=== PATIENT | male | born 1965 | race Caucasian/White ===

== ENCOUNTER → 2017-08-26 | Outpatient (CLI) | payer OTHER ==
[2017-08-26 18:53] LABS: BASOPHILS # (AUTO) 0.2 X10^3/uL (0.0-0.1); BASOPHILS % (AUTO) 2.5 % (0.2-1.0); EOSINOPHILS # (AUTO) 0.1 x10^3/uL (0.0-0.2); EOSINOPHILS % (AUTO) 1.1 % (0.9-2.9); HEMATOCRIT 44.4 % (42.0-54.0); HEMOGLOBIN 15.5 g/dL (13.5-18.0); LYMPHOCYTES % (AUTO) 32.2 % (21.0-51.0); MEAN CORPUSCULAR HEMOGLOBIN 32.4 pg (27.0-34.0); MEAN CORPUSCULAR HGB CONC 34.9 g/dL (33.0-35.0); MEAN CORPUSCULAR VOLUME 92.8 fL (80.0-100.0); MEAN PLATELET VOLUME 7.9 fL (7.4-11.0); MONOCYTES # (AUTO) 0.6 x10^3/uL (0.3-0.8); MONOCYTES % (AUTO) 9.5 % (0.0-13.0); NEUTROPHILS # (AUTO) 3.5 x10^3/uL (2.2-4.8); NEUTROPHILS % (AUTO) 54.7 % (42.0-75.0); PLATELET COUNT 245 X10^3/uL (150.0-450.0); RED BLOOD COUNT 4.79 X10^6/uL (4.7-6.0); RED CELL DISTRIBUTION WIDTH 13.5 % (11.6-16.5); WHITE BLOOD COUNT 6.3 X10^3/uL (3.6-10.0)
[2017-08-26 19:19] LABS: ALANINE AMINOTRANSFERASE 103 Units/L (12-78); ALBUMIN 4.4 g/dL (3.4-5.0); ALKALINE PHOSPHATASE 70 Units/L (46-116); ASPARTATE AMINO TRANSFERASE 70 Units/L (15-37); BLOOD UREA NITROGEN 14 mg/dL (7-18); C-REACTIVE PROTEIN < 0.50 mg/L (0-3.0); CALCIUM 8.5 mg/dL (8.5-10.1); CARBON DIOXIDE 26.5 mmol/L (21-32); CHLORIDE 99 mmol/L (98-107); COR NA(FOR HYPERGLY) 137 mmol/L (136-145); SODIUM 136 mmol/L (136-145); TOTAL PROTEIN 7.9 g/dL (6.4-8.2); eGFR BLACK RACES > 60 (>60); eGFR NON BLACK RACES > 60 (>60)
[2017-08-26 19:32] LABS: ERYTHROCYTE SEDIMENTATION RATE 1 MM/HOUR (0-15)
[2017-08-26 19:36] LABS: BILIRUBIN,URINE NEGATIVE (NEGATIVE); BLOOD/HEMOGLOBIN,URINE NEGATIVE (NEGATIVE); GLUCOSE, URINE NEGATIVE (NEGATIVE); KETONES,URINE NEGATIVE (NEGATIVE); LEUKOCYTE ESTERASE ,URINE NEGATIVE (NEGATIVE); NITRITES,URINE NEGATIVE (NEGATIVE); PROTEIN,URINE NEGATIVE (NEGATIVE); UROBILINOGEN,URINE NORMAL (NORMAL)
[2017-08-26 20:21] LABS: APPEARANCE,URINE CLEAR (CLEAR); BACTERIA,URINE NEGATIVE /HPF (NEGATIVE); COLOR,URINE PALE YELLOW (YELLOW); RBC,URINE NONE SEEN /HPF (NONE SEEN); SQUAMOUS EPITHELIAL CELL,UR RARE /HPF (NEGATIVE)
--- NOTE | 2017-08-27 16:15 | RAD ---
HISTORY: Preop finger surgery Study: Chest PA and lateral Comparison: None Findings: The heart is within normal limits in size. The carito are normal. The lungs are mildly hyperinflated bu t free of acute alveolar infiltrates. No pleural effusions are identified. The bony thorax is unremar kable. IMPRESSION: Lungs hyperinflated but clear Reported By:
== END ==
LOC: LAB 18:07
PROVIDERS: ATTEND Orthopaedic Surgery
DX: Z01.818 Encounter for other preprocedural examination (principal); Z01.810 Encounter for preprocedural cardiovascular examination; Z01.811 Encounter for preprocedural respiratory examination; Z79.899 Other long term (current) drug therapy; Z11.8 Encounter for screening for other infectious and parasitic diseases; S62.621B Displaced fracture of middle phalanx of left index finger, initial encounter for open fracture; X58.XXXA Exposure to other specified factors, initial encounter
CPT/HCPCS: 36415; 71046; 80053; 81001; 85025; 85652; 86140; 87640; 87641; 93005; 93010

== ENCOUNTER 2017-08-29 09:14 | Day surgery (SDC) | payer OTHER ==
[2017-08-29] MEDS ORDERED: EPHEDRINE SULFATE INJ ONE (09:22)
[2017-08-29] MEDS ORDERED: ZOFRAN INJ 4 MG VIAL ONE (09:22)
[2017-08-29] MEDS ORDERED: DIPRIVAN VIAL ONE (09:22)
[2017-08-29] MEDS ORDERED: D5 LR 1000 ML 1,000 ML IV ONE (09:22)
[2017-08-29] MEDS ORDERED: SUPRANE IN ONE (09:22)
[2017-08-29] MEDS ORDERED: REGLAN INJ 10 MG VIAL ONE (09:22)
[2017-08-29] MEDS ORDERED: VERSED ONE (09:22)
[2017-08-29] MEDS ORDERED: ANCEF 1 GM IV PREMIX* 1 GM/50 ML BAG IV ONE (09:23)
[2017-08-29] MEDS ORDERED: XYLOCAINE 2 % (PLAIN) ONE (12:32)
[2017-08-29] MEDS ORDERED: FENTANYL INJ 250 mcg ONE (12:55)
[2017-08-29] MEDS ORDERED: MARCAINE 0.25% INJ ONE (13:02)
[2017-08-29] MEDS ORDERED: LR 1000 ML IV 1,000 ML IV ONE (14:54)
[2017-08-29] MEDS ORDERED: NS IRRIGATION 1000 ML 1,000 ML with BACITRACIN VIAL 50,000 UNT IR ONE ×2 (14:56)
[2017-08-29] MEDS ORDERED: BENADRYL INJ 50 MG VIAL IVP PRN (15:16)
[2017-08-29] MEDS ORDERED: DILAUDID INJ IVP PRN (15:16)
[2017-08-29] MEDS ORDERED: PHENERGAN INJ 25 MG IVP PRN (15:16)
[2017-08-29] MEDS ORDERED: REGLAN INJ 10 MG VIAL IVP PRN (15:16)
[2017-08-29] MEDS ORDERED: ZOFRAN INJ 4 MG VIAL IVP PRN (15:16)
[2017-08-29] MEDS ORDERED: PERCOCET TAB 5/325 MG PO PRN (15:25)
--- NOTE | 2017-08-29 16:02 | RAD ---
HISTORY: Postop open reduction internal fixation of finger Study: Three-view left hand Comparison: None Findings: A surgical nail or screw is visualized traversing the base of the 2nd middle phalanx, where there is a comminuted fracture. There is near normal anatomic alignment of fracture fragments. No dislocation is evident. Surrounding soft tissue swelling is noted. IMPRESSION: 1. Status post ORIF of the 2nd middle phalanx fracture. Reported By:
[2017-08-29 16:43] VITALS: BP 110/67
--- NOTE | 2017-09-08 11:23 | OR.GENERIC ---
Post-Op Note Generic - Post-Op Note Operative Report: preoperative diagnosis - left hand index finger open fracture of the middle phalanx Left hand index finger extensor tendon rupture Postoperative diagnosis-left hand index finger open fracture of the middle phalanx Left hand index finger extensor tendon rupture. Procedure-#1 left hand index finger debridement of the open fracture #2 left hand index finger open reduction and internal fixation of the articular fracture off the middle phalanx with K wire #3 left hand index finger extensor tendon repair. date of surgery 08/29/17 Indication-patient a 52-year-old male had an injury of the left hand index finger when the trailer door fell on his hand. This happened at his workplace. This happened about 3 weeks ago. He was seen in a hospital in [place]. He is Worker[employer]. He presented to my office after 3 weeks after the initial injury. Examination showed an extensor tendon injury as well as an open fracture of the middle phalanx of the left index finger. He was posted for surgery. The natural history and treatment discussions were done with them as well as his sister. Complications including but not limited to infection, osteomyelitis, extensor tendon lag, need for further procedures, stiffness of the finger, inability to extend the finger, amputation of the finger where a few of the complications which were discussed with him. He understood and verbalized the same. He wanted to proceed with the surgery. preoperative-patient was seen in the preop holding area. limb was marked. Patient got the appropriate antibiotics.the patient was met by the nurse healthcare manager in the preop holding area. Patient got regional block. Consent was again revisited. Procedure-the patient was brought to the operating room. Patient was placed supine on the operating table with the left and placed on the arm table. A tourniquet was applied but was not inflated. Patient was put under light IV sedation. The left limb was prepped and draped. Inspection of the wound shows an open wound which extends from the extensor surface at the PIP and onto the radial surface onto the flexor surface. The full-thickness tear of the skin. Extensor tendon ruptured and the ends were frayed. No obvious pus or foreign body noted. multiple cultures were obtained.The skin edges debrided to expose the bleeding surface. A 6R incision placed proximally and distally. Dissection carried down distally. Thorough irrigation was done. Debridement of the frayed extensor tendons done. Debridement of the bone tamp. There was an articular fracture noted which is fairly displaced. Also seen was bone loss in the radial aspect of the middle phalanx. After debridement of superficial as well as the deep structures. A K wire was passed holding the articular fracture in place. This was checked in C-arm in multiple views and found to be satisfactory. The extensor tendon was released both proximally and distally. The ends were approximated without much tension. Krakw type of retaining sutures were placed in the proximal part of the tendon and was pulled down to approximate the. Good approximation was noted without much tension at the end of the repair. The flexor aspect of the wound was explored. The flexor tendons were found to be intact. The neurovascular bundle seemed to be intact. The distal wound was closed in layers. Tourniquet was never used during the procedure. Sterile dressing was applied. Splint was applied. Postoperative-patient was shipped to the PACU in stable condition. Postoperative x-rays were obtained which show satisfactory placement of the K wire. The family was updated about the findings.postoperative instructions were given to them. The prognosis was explained to them in detail. Followup as advised. Keep the dressing clean and dry. Take antibiotics as well as pain medication as advised.
== END 2017-08-29 16:43 | disposition home or self-care (01) | DRG 514 ==
LOC: SURG1 09:14
PROVIDERS: ATTEND Orthopaedic Surgery
PROC: 0LQ80ZZ Repair Left Hand Tendon, Open Approach (ICD-10-PCS; 2017-08-29)
PROC: 0PSV04Z Reposition Left Finger Phalanx with Internal Fixation Device, Open Approach (ICD-10-PCS; principal; 2017-08-29 10:15)
DX: S62.621B Displaced fracture of middle phalanx of left index finger, initial encounter for open fracture (principal); S66.311A Strain of extensor muscle, fascia and tendon of left index finger at wrist and hand level, initial encounter; X58.XXXA Exposure to other specified factors, initial encounter
CPT/HCPCS: 73130; 76000; A4222; S0020; J0690; J2001; J2250; J2405; J2765; J3010; J3490; J7120

== ENCOUNTER 2017-09-09 13:08 | Inpatient (IN) | payer OTHER ==
[~2017-09-09 13:08] MED LIST: DIPRIVAN VIAL ONE; EPHEDRINE SULFATE INJ ONE; SUPRANE IN ONE; VERSED ONE; ZOFRAN INJ 4 MG VIAL ONE
[2017-09-09] MEDS ORDERED: D5 LR 1000 ML 1,000 ML IV ONE (13:14)
[2017-09-09] MEDS ORDERED: ANCEF 1 GM IV PREMIX* 1 GM/50 ML BAG IV ONE (13:28)
[2017-09-09] MEDS ORDERED: XYLOCAINE 2 % (PLAIN) ONE (13:35)
[2017-09-09] MEDS ORDERED: MARCAINE 0.5% ONE (13:51)
[2017-09-09] MEDS ORDERED: HYDROGEN PEROXIDE 3% ONE (16:06)
[2017-09-09] MEDS ORDERED: NS IRRIGATION 1000 ML 1,000 ML with BACITRACIN VIAL 50,000 UNT IR ONE ×4 (16:21→16:45)
[2017-09-09] MEDS ORDERED: LR 1000 ML IV 1,000 ML IV ONE (16:28)
[2017-09-09] MEDS ORDERED: BACTROBAN OINT ONE (17:29)
[2017-09-09] MEDS ORDERED: PHENERGAN INJ 25 MG IVP PRN (18:04)
[2017-09-09] MEDS ORDERED: BENADRYL INJ 50 MG VIAL IVP PRN (18:04)
[2017-09-09] MEDS ORDERED: REGLAN INJ 10 MG VIAL IVP PRN (18:04)
[2017-09-09] MEDS ORDERED: ZOFRAN INJ 4 MG VIAL IVP PRN (18:04)
[2017-09-09] MEDS: DILAUDID INJ IVP PRN ×6 (18:12→23:05)
[2017-09-09] MEDS: LR 1000 ML IV 1,000 ML IV SCH (19:00)
[2017-09-09 19:59] VITALS: BMI 20.3
[2017-09-09] MEDS ORDERED: LIBRIUM PO PRN (20:06)
[2017-09-09] MEDS: PERCOCET TAB 5/325 MG PO PRN (20:30)
[2017-09-09] MEDS: VANCOMYCIN HCL 1 GM VIAL 1 GM in D5W 250 ML IV 250 ML IV SCH (21:25)
[2017-09-10] MEDS: PERCOCET TAB 5/325 MG PO PRN ×3 (02:32→16:16)
[2017-09-10 05:43] LABS: BASOPHILS % (AUTO) 0.5 % (0.2-1.0); EOSINOPHILS # (AUTO) 0.1 x10^3/uL (0.0-0.2); EOSINOPHILS % (AUTO) 1.2 % (0.9-2.9); HEMATOCRIT 37.9 % (42.0-54.0); HEMOGLOBIN 13.1 g/dL (13.5-18.0); LYMPHOCYTES # (AUTO) 1.7 X10^3/uL (1.3-2.9); LYMPHOCYTES % (AUTO) 26.3 % (21.0-51.0); MEAN CORPUSCULAR HGB CONC 34.5 g/dL (33.0-35.0); MEAN CORPUSCULAR VOLUME 92.7 fL (80.0-100.0); MEAN PLATELET VOLUME 8.9 fL (7.4-11.0); MONOCYTES # (AUTO) 0.8 x10^3/uL (0.3-0.8); MONOCYTES % (AUTO) 11.6 % (0.0-13.0); NEUTROPHILS # (AUTO) 3.9 x10^3/uL (2.2-4.8); NEUTROPHILS % (AUTO) 60.4 % (42.0-75.0); PLATELET COUNT 194 X10^3/uL (150.0-450.0); RED BLOOD COUNT 4.09 X10^6/uL (4.7-6.0); RED CELL DISTRIBUTION WIDTH 12.9 % (11.6-16.5); WHITE BLOOD COUNT 6.5 X10^3/uL (3.6-10.0)
[2017-09-10 06:00] LABS: BLOOD UREA NITROGEN 8 mg/dL (7-18); CALCIUM 8.6 mg/dL (8.5-10.1); CARBON DIOXIDE 27.6 mmol/L (21-32); CHLORIDE 99 mmol/L (98-107); COR NA(FOR HYPERGLY) 135 mmol/L (136-145); CREATININE 0.78 mg/dL (0.70-1.30); SODIUM 134 mmol/L (136-145); eGFR BLACK RACES > 60 (>60); eGFR NON BLACK RACES > 60 (>60)
[2017-09-10] MEDS: DILAUDID INJ IVP PRN ×3 (06:44→19:39)
--- NOTE | 2017-09-10 08:07 | DR.H&P ---
H&P - History & Physical for Day of: H&P Date: 09/09/17 - Chief Complaint Chief Complaint: PAIN, REDNESS SWELLING TO LEFT INDEX FINGER - Allergies Allergies/Adverse Reactions: Allergies Allergy/AdvReac Type Severity Reaction Status Date / Time No Known Drug Allergies Allergy Verified 08/29/17 09:57 - History of Present Illness History of Present Illness: 52 BM ADMIT POST OPERATIVE I & D PER DR SALES. PT HAD ABSCESS FORMATION AND CELLULITIS FOLLOWING AND COMPLICATED INJURY FROM 2016. PT WAS ADMITTED FOR PAIN CONTROL AND IV ATBX THERAPY - Past Medical History Additional Medical History: DAILY ETOH USE - Past Surgical History Surgical History: Ortho Surgery - Family History Family Medical History: [place], Sudden Cardiac - Social History Does patient currently use any type of tobacco product: Yes Have you used tobacco products in the last 12 months: Yes Type of Tobacco Use: Cigarettes How many years tobacco product used: 10 Packs per day or dips/chews per day: 2-3 DAILY Does any household member use tobacco: No Alcohol Use: DAILY Drug Use: Marijuana - Review of Systems Constitutional: No Symptoms Reported Eyes: No Symptoms Reported ENT: No Symptoms Reported Respiratory: No Symptoms Reported Cardiovascular: No Symptoms Reported Gastrointestinal: No Symptoms Reported Genitourinary: No Symptoms Reported Musculoskeletal: Hand Pain Skin: Wound Neurological: No Symptoms Reported - Physical Exam Vital Signs: Temperature 99.4 F Pulse Rate [Right Brachial] 65 Pulse Rate 50 Respiratory Rate 16 Blood Pressure [Right Arm] 116/74 Blood Pressure 161/79 O2 Sat by Pulse Oximetry 99 Oriented: Normal Eyes: Normal Ear: Normal Nose: Normal Throat: Normal Respiratory: RLL Diminished, LLL Diminished Cardiovascular: Normal : Normal Auscultation: Bowel Sounds: Normal Palpation: Normal Tenderness: Normal Skin: Wound Musculoskeletal: Left, Hand (LEFT INDEX FINGER) Psychiatric: Anxiety Affect: Anxious Speech Pattern: Clear, Appropriate - Assessment/Plan (1) Cellulitis of left hand Status: Acute Plan: WOUND CARE, IV ATBX THERAPY, PAIN CONTROL POST OPERATIVE. RESUME HOME MEDS. BP MONITORING. FOLLOWED BY MÓNICA MCNAIR. REPEAT AM LABS (2) Cellulitis of finger of left hand Status: Acute
[2017-09-10] MEDS: VANCOMYCIN HCL 1 GM VIAL 1 GM in D5W 250 ML IV 250 ML IV SCH (08:43)
[2017-09-10] MEDS ORDERED: FLUVIRIN IM ONE (09:00)
[2017-09-10] MEDS ORDERED: PREVNAR 13 IM ONE (09:00)
[2017-09-10] MEDS ORDERED: BACITRACIN ZINC ONE (10:49)
--- NOTE | 2017-09-10 11:20 | PCM.PROG ---
Progress Note - Progress Note for Day of Date: 09/10/17 - Subjective Subjective: pt doing ok. dressing changed. sterile dressing reapplied. k wire in situ. distal cap refill good. currently on vancomycin. culture preliminary caog positive staph. - Past Medical Family Social History Allergies: Allergies No Known Drug Allergies Allergy (Verified 08/29/17 09:57) - Vital Signs and I&O's Vital Signs: Temperature 98.1 F Pulse Rate [Right Brachial] 56 Pulse Rate 50 Respiratory Rate 18 Blood Pressure [Right Arm] 137/64 Blood Pressure 161/79 O2 Sat by Pulse Oximetry 97 Intake and Output: Intake & Output 09/07/17 09/08/17 09/09/17 09/10/17 11:59 11:59 11:59 11:59 Intake Total 2414 Output Total 2019 Balance 394 - Physical Exam Oriented: Normal Eyes: Normal Ear: Normal Nose: Normal Throat: Normal Cardiovascular: Normal : Normal Auscultation: Bowel Sounds: Normal Tenderness: Normal Skin: Wound Musculoskeletal: Left, Hand (LEFT INDEX FINGER) Psychiatric: Anxiety Mood Description: Calm Affect: Anxious Speech Pattern: Clear, Appropriate - Laboratory and Diagnostics Result Diagrams: 09/10/17 04:50 09/10/17 04:50 Labs: 09/09/17 17:07 Finger - Left Index Gram Stain - Final 09/09/17 17:07 Finger - Left Index Wound Culture - Preliminary Laboratory WBC 6.5 X10^3/uL (3.6-10.0) 09/10/17 04:50 RBC 4.09 X10^6/uL (4.7-6.0) L 09/10/17 04:50 Hgb 13.1 g/dL (13.5-18.0) L 09/10/17 04:50 Hct 37.9 % (42.0-54.0) L 09/10/17 04:50 MCV 92.7 fL (80.0-100.0) 09/10/17 04:50 MCH 32.0 pg (27.0-34.0) 09/10/17 04:50 MCHC 34.5 g/dL (33.0-35.0) 09/10/17 04:50 RDW 12.9 % (11.6-16.5) 09/10/17 04:50 Plt Count 194 X10^3/uL (150.0-450.0) 09/10/17 04:50 MPV 8.9 fL (7.4-11.0) 09/10/17 04:50 Neut % (Auto) 60.4 % (42.0-75.0) 09/10/17 04:50 Lymph % (Auto) 26.3 % (21.0-51.0) 09/10/17 04:50 [place] % (Auto) 11.6 % (0.0-13.0) 09/10/17 04:50 Eos % (Auto) 1.2 % (0.9-2.9) 09/10/17 04:50 Baso % (Auto) 0.5 % (0.2-1.0) 09/10/17 04:50 Neut # (Auto) 3.9 x10^3/uL (2.2-4.8) 09/10/17 04:50 Lymph # (Auto) 1.7 X10^3/uL (1.3-2.9) 09/10/17 04:50 [place] # (Auto) 0.8 x10^3/uL (0.3-0.8) 09/10/17 04:50 Eos # (Auto) 0.1 x10^3/uL (0.0-0.2) 09/10/17 04:50 Baso # (Auto) 0.0 X10^3/uL (0.0-0.1) 09/10/17 04:50 Absolute Nucleated RBC 0.0 /100WBC 09/10/17 04:50 Sodium 134 mmol/L (136-145) L 09/10/17 04:50 Corrected Sodium 135 mmol/L (136-145) L 09/10/17 04:50 Potassium 4.3 mmol/L (3.5-5.1) 09/10/17 04:50 Chloride 99 mmol/L (98-107) 09/10/17 04:50 Carbon Dioxide 27.6 mmol/L (21-32) 09/10/17 04:50 BUN 8 mg/dL (7-18) 09/10/17 04:50 Creatinine 0.78 mg/dL (0.70-1.30) 09/10/17 04:50 Est GFR (MDRD) Af Amer > 60 (>60) 09/10/17 04:50 Est GFR (MDRD) Non-Af > 60 (>60) 09/10/17 04:50 Glucose 141 mg/dL (65-99) H 09/10/17 04:50 Calcium 8.6 mg/dL (8.5-10.1) 09/10/17 04:50 - Plan (1) Osteomyelitis of finger of left hand Status: Acute Plan: we will continue IV antibiotics. will plan on PICC line. will plan on ID consult.
[2017-09-10] MEDS: LR 1000 ML IV 1,000 ML IV SCH ×2 (16:18→22:00)
[2017-09-11] MEDS: PERCOCET TAB 5/325 MG PO PRN ×3 (02:05→18:33)
[2017-09-11 05:28] LABS: BASOPHILS % (AUTO) 0.5 % (0.2-1.0); EOSINOPHILS # (AUTO) 0.1 x10^3/uL (0.0-0.2); EOSINOPHILS % (AUTO) 2.2 % (0.9-2.9); HEMATOCRIT 36.5 % (42.0-54.0); HEMOGLOBIN 12.7 g/dL (13.5-18.0); LYMPHOCYTES # (AUTO) 1.4 X10^3/uL (1.3-2.9); LYMPHOCYTES % (AUTO) 27.7 % (21.0-51.0); MEAN CORPUSCULAR HEMOGLOBIN 31.7 pg (27.0-34.0); MEAN CORPUSCULAR HGB CONC 34.8 g/dL (33.0-35.0); MEAN CORPUSCULAR VOLUME 91.2 fL (80.0-100.0); MEAN PLATELET VOLUME 7.7 fL (7.4-11.0); MONOCYTES # (AUTO) 0.6 x10^3/uL (0.3-0.8); MONOCYTES % (AUTO) 11.9 % (0.0-13.0); NEUTROPHILS # (AUTO) 2.8 x10^3/uL (2.2-4.8); NEUTROPHILS % (AUTO) 57.7 % (42.0-75.0); PLATELET COUNT 223 X10^3/uL (150.0-450.0); RED CELL DISTRIBUTION WIDTH 12.7 % (11.6-16.5); WHITE BLOOD COUNT 4.9 X10^3/uL (3.6-10.0)
[2017-09-11 05:46] LABS: BLOOD UREA NITROGEN 4 mg/dL (7-18); CALCIUM 8.2 mg/dL (8.5-10.1); CHLORIDE 102 mmol/L (98-107); CREATININE 0.75 mg/dL (0.70-1.30); SODIUM 137 mmol/L (136-145); eGFR BLACK RACES > 60 (>60); eGFR NON BLACK RACES > 60 (>60)
[2017-09-11] MEDS ORDERED: VANCOMYCIN HCL 1 GM VIAL 1 GM in D5W 250 ML IV 250 ML IV SCH (07:27)
[2017-09-11] MEDS ORDERED: VANCOMYCIN HCL 1 GM VIAL ONE (08:47)
[2017-09-11] MEDS ORDERED: D5W 250 ML IV 250 ML IV ONE (08:48)
[2017-09-11] MEDS ORDERED: VANCOMYCIN HCL 500 MG VIAL ONE (08:48)
[2017-09-11] MEDS: VANCOMYCIN HCL 500 MG VIAL 500 MG, VANCOMYCIN HCL 1 GM VIAL 1 GM in D5W 250 ML IV 250 ML IV SCH ×2 (08:50→22:00)
[2017-09-11] MEDS: LR 1000 ML IV 1,000 ML IV SCH ×3 (08:53→22:53)
[2017-09-11] MEDS ORDERED: BACITRACIN ZINC ONE (10:35)
[2017-09-11] MEDS ORDERED: VANCOMYCIN 1 GM PREMIX (ADDVANTAGE) 250 ML IV ONE (22:05)
[2017-09-12] MEDS: DILAUDID INJ IVP PRN (00:20)
[2017-09-12] MEDS: PERCOCET TAB 5/325 MG PO PRN ×3 (05:40→19:51)
[2017-09-12 06:24] LABS: BLOOD UREA NITROGEN 5 mg/dL (7-18); CALCIUM 8.7 mg/dL (8.5-10.1); CARBON DIOXIDE 29.2 mmol/L (21-32); CHLORIDE 102 mmol/L (98-107); SODIUM 139 mmol/L (136-145); eGFR BLACK RACES > 60 (>60); eGFR NON BLACK RACES > 60 (>60)
[2017-09-12 06:32] LABS: BASOPHILS % (AUTO) 0.8 % (0.2-1.0); EOSINOPHILS # (AUTO) 0.1 x10^3/uL (0.0-0.2); EOSINOPHILS % (AUTO) 2.3 % (0.9-2.9); HEMATOCRIT 43.7 % (42.0-54.0); HEMOGLOBIN 15.1 g/dL (13.5-18.0); LYMPHOCYTES # (AUTO) 1.5 X10^3/uL (1.3-2.9); LYMPHOCYTES % (AUTO) 26.8 % (21.0-51.0); MEAN CORPUSCULAR HGB CONC 34.5 g/dL (33.0-35.0); MEAN CORPUSCULAR VOLUME 92.8 fL (80.0-100.0); MEAN PLATELET VOLUME 9.1 fL (7.4-11.0); MONOCYTES # (AUTO) 0.8 x10^3/uL (0.3-0.8); MONOCYTES % (AUTO) 14.4 % (0.0-13.0); NEUTROPHILS # (AUTO) 3.1 x10^3/uL (2.2-4.8); NEUTROPHILS % (AUTO) 55.7 % (42.0-75.0); PLATELET COUNT 210 X10^3/uL (150.0-450.0); RED BLOOD COUNT 4.71 X10^6/uL (4.7-6.0); RED CELL DISTRIBUTION WIDTH 12.8 % (11.6-16.5); WHITE BLOOD COUNT 5.6 X10^3/uL (3.6-10.0)
[2017-09-12 08:55] LABS: CREATININE 0.99 mg/dL (0.70-1.30); VANCOMYCIN,TROUGH 5.9 ug/mL (15-20)
[2017-09-12] MEDS: VANCOMYCIN HCL 500 MG VIAL 500 MG, VANCOMYCIN HCL 1 GM VIAL 1 GM in D5W 250 ML IV 250 ML IV SCH ×2 (10:23→21:14)
--- NOTE | 2017-09-12 11:55 | PCM.PROG ---
Progress Note - Progress Note for Day of Date: 09/12/17 - Subjective Subjective: pt doing well. pain well controlled. C and S- MRSA. sensitive to Vanc. currently on Vanc 1.5 q 12. we will get pharmacy consult for the dosage. dressing clean and dry. vitals stable. labs wnl. no spike fever. - Past Medical Family Social History Allergies: Allergies No Known Drug Allergies Allergy (Verified 08/29/17 09:57) - Vital Signs and I&O's Vital Signs: Temperature 98.0 F Pulse Rate [Right Brachial] 71 Pulse Rate 50 Respiratory Rate 20 Blood Pressure [Left Arm] 126/93 Blood Pressure [Right Arm] 128/86 Blood Pressure 161/79 O2 Sat by Pulse Oximetry 97 Intake and Output: Intake & Output 09/09/17 09/10/17 09/11/17 09/12/17 11:59 11:59 11:59 11:59 Intake Total 2414 2901 2364 Output Total 2020 Balance 394 2901 2364 - Physical Exam Oriented: Normal Eyes: Normal Ear: Normal Nose: Normal Throat: Normal Cardiovascular: Normal : Normal Auscultation: Bowel Sounds: Normal Tenderness: Normal Skin: Wound Musculoskeletal: Left, Hand (LEFT INDEX FINGER) Psychiatric: Anxiety Mood Description: Calm Affect: Anxious Speech Pattern: Clear, Appropriate - Laboratory and Diagnostics Result Diagrams: 09/12/17 05:24 09/12/17 08:15 Labs: 09/09/17 17:07 Finger - Left Index Gram Stain - Final 09/09/17 17:07 Finger - Left Index Wound Culture - Final Methicillin Resis Staph Aureus Laboratory WBC 5.6 X10^3/uL (3.6-10.0) 09/12/17 05:24 RBC 4.71 X10^6/uL (4.7-6.0) 09/12/17 05:24 Hgb 15.1 g/dL (13.5-18.0) D 09/12/17 05:24 Hct 43.7 % (42.0-54.0) 09/12/17 05:24 MCV 92.8 fL (80.0-100.0) 09/12/17 05:24 MCH 32.0 pg (27.0-34.0) 09/12/17 05:24 MCHC 34.5 g/dL (33.0-35.0) 09/12/17 05:24 RDW 12.8 % (11.6-16.5) 09/12/17 05:24 Plt Count 210 X10^3/uL (150.0-450.0) 09/12/17 05:24 MPV 9.1 fL (7.4-11.0) 09/12/17 05:24 Neut % (Auto) 55.7 % (42.0-75.0) 09/12/17 05:24 Lymph % (Auto) 26.8 % (21.0-51.0) 09/12/17 05:24 [place] % (Auto) 14.4 % (0.0-13.0) H 09/12/17 05:24 Eos % (Auto) 2.3 % (0.9-2.9) 09/12/17 05:24 Baso % (Auto) 0.8 % (0.2-1.0) 09/12/17 05:24 Neut # (Auto) 3.1 x10^3/uL (2.2-4.8) 09/12/17 05:24 Lymph # (Auto) 1.5 X10^3/uL (1.3-2.9) 09/12/17 05:24 [place] # (Auto) 0.8 x10^3/uL (0.3-0.8) 09/12/17 05:24 Eos # (Auto) 0.1 x10^3/uL (0.0-0.2) 09/12/17 05:24 Baso # (Auto) 0.0 X10^3/uL (0.0-0.1) 09/12/17 05:24 Absolute Nucleated RBC 0.0 /100WBC 09/12/17 05:24 Sodium 139 mmol/L (136-145) 09/12/17 05:24 Corrected Sodium TNP 09/12/17 05:24 Potassium 3.8 mmol/L (3.5-5.1) 09/12/17 05:24 Chloride 102 mmol/L (98-107) 09/12/17 05:24 Carbon Dioxide 29.2 mmol/L (21-32) 09/12/17 05:24 BUN 5 mg/dL (7-18) L 09/12/17 05:24 Creatinine 0.99 mg/dL (0.70-1.30) 09/12/17 08:15 Est GFR (MDRD) Af Amer > 60 (>60) 09/12/17 05:24 Est GFR (MDRD) Non-Af > 60 (>60) 09/12/17 05:24 Glucose 93 mg/dL (65-99) 09/12/17 05:24 Calcium 8.7 mg/dL (8.5-10.1) 09/12/17 05:24 Vancomycin Trough 5.9 ug/mL (15-20) L 09/12/17 08:15 - Plan (1) Osteomyelitis of finger of left hand Status: Acute Plan: plan discussed with patient as well as his ister-. 1. PICC line. 2. Will work with workers comp for IV antibiotics delivered to his home . to avoid him travelling daily twice to hospital for injections. He lives in [place] and he only wants to use [facility]. 3. ID consult- Dr. Pelaez. 4. Regular dressing change.
--- NOTE | 2017-09-12 14:44 | RAD ---
History: PICC line placement Study: Portable upright AP chest Comparison: August 26 Findings: There is a left-sided PICC line. The distal catheter courses inferiorly over the distal cla vicle and in transversely over the aortic arch to then extending inferiorly to the right of midline. The heart size is normal and the aorta is mildly tortuous. The lungs are clear. There is no pleural e ffusion. Impression: Tip of the left-sided PICC line probably in the proximal SVC. No acute disease. Reported By:
--- NOTE | 2017-09-12 15:17 | DR.UPDATE ---
H&P Update History and Physical Update: History and Physical reviewed and patient examined. Changes noted: NO Yes with the following:agree with H&P. Will place PICC line Procedures (ALL) - Central Line Placement PCM.CLCO: written consent Time out performed: Yes Patient placed pm monitor/pulse ox: Yes prep: mask, gown, gloves, other Centrial line prep: chlorhexidine scrub Local anesthsia used: lidocane 1% Ultrasound used for placement: Yes (L basilic) Central line lumen ininserted: double (5fr power port. trimmed to 48cm) Post procedure: all ports aspirated, flushed,capped (unable to aspirate, but flushes easily), sterile dressing applied Post procedure xray: tip oc catheter in good position (per CXR), no pneumothorax seen Patient tolerated procedure: Yes Complications: none
[2017-09-12] MEDS ORDERED: PHARMACY COMMENT IV SCH (20:45)
[2017-09-12 21:00] LABS: CREATININE 0.92 mg/dL (0.70-1.30); VANCOMYCIN,TROUGH 6.8 ug/mL (15-20)
[2017-09-13 06:15] LABS: BASOPHILS % (AUTO) 0.5 % (0.2-1.0); EOSINOPHILS # (AUTO) 0.2 x10^3/uL (0.0-0.2); EOSINOPHILS % (AUTO) 2.9 % (0.9-2.9); HEMATOCRIT 40.7 % (42.0-54.0); LYMPHOCYTES # (AUTO) 1.4 X10^3/uL (1.3-2.9); LYMPHOCYTES % (AUTO) 22.7 % (21.0-51.0); MEAN CORPUSCULAR HEMOGLOBIN 31.9 pg (27.0-34.0); MEAN CORPUSCULAR HGB CONC 34.5 g/dL (33.0-35.0); MEAN CORPUSCULAR VOLUME 92.5 fL (80.0-100.0); MEAN PLATELET VOLUME 8.1 fL (7.4-11.0); MONOCYTES # (AUTO) 0.8 x10^3/uL (0.3-0.8); MONOCYTES % (AUTO) 13.1 % (0.0-13.0); NEUTROPHILS # (AUTO) 3.7 x10^3/uL (2.2-4.8); NEUTROPHILS % (AUTO) 60.8 % (42.0-75.0); PLATELET COUNT 234 X10^3/uL (150.0-450.0); RED CELL DISTRIBUTION WIDTH 12.7 % (11.6-16.5); WHITE BLOOD COUNT 6.1 X10^3/uL (3.6-10.0)
[2017-09-13 06:45] LABS: ALANINE AMINOTRANSFERASE 35 Units/L (12-78); ALBUMIN 3.2 g/dL (3.4-5.0); ALKALINE PHOSPHATASE 47 Units/L (46-116); ASPARTATE AMINO TRANSFERASE 23 Units/L (15-37); BLOOD UREA NITROGEN 8 mg/dL (7-18); CALCIUM 8.6 mg/dL (8.5-10.1); CARBON DIOXIDE 26.6 mmol/L (21-32); CHLORIDE 103 mmol/L (98-107); COR CA(FOR HYPOALB) 9.2 mg/dL (8.5-10.1); SODIUM 138 mmol/L (136-145); eGFR BLACK RACES > 60 (>60); eGFR NON BLACK RACES > 60 (>60)
[2017-09-13] MEDS: VANCOMYCIN HCL 500 MG VIAL 500 MG, VANCOMYCIN HCL 1 GM VIAL 1 GM in D5W 250 ML IV 250 ML IV SCH ×2 (09:54→22:00)
[2017-09-13] MEDS ORDERED: MILK OF MAGNESIA PO PRN (14:33)
[2017-09-13] MEDS: COLACE CAP 100 MG PO PRN ×2 (14:46→20:38)
[2017-09-13] MEDS ORDERED: D5W IV ONE (16:00)
[2017-09-13] MEDS ORDERED: VANCOMYCIN HCL IV ONE (16:00)
[2017-09-13] MEDS: PERCOCET TAB 5/325 MG PO PRN (20:38)
[2017-09-14 06:10] LABS: BASOPHILS % (AUTO) 0.8 % (0.2-1.0); EOSINOPHILS # (AUTO) 0.2 x10^3/uL (0.0-0.2); EOSINOPHILS % (AUTO) 2.9 % (0.9-2.9); HEMATOCRIT 40.9 % (42.0-54.0); HEMOGLOBIN 14.2 g/dL (13.5-18.0); LYMPHOCYTES # (AUTO) 1.5 X10^3/uL (1.3-2.9); LYMPHOCYTES % (AUTO) 25.6 % (21.0-51.0); MEAN CORPUSCULAR HEMOGLOBIN 31.7 pg (27.0-34.0); MEAN CORPUSCULAR HGB CONC 34.8 g/dL (33.0-35.0); MEAN CORPUSCULAR VOLUME 91.2 fL (80.0-100.0); MEAN PLATELET VOLUME 8.9 fL (7.4-11.0); MONOCYTES # (AUTO) 0.7 x10^3/uL (0.3-0.8); MONOCYTES % (AUTO) 13.2 % (0.0-13.0); NEUTROPHILS # (AUTO) 3.3 x10^3/uL (2.2-4.8); NEUTROPHILS % (AUTO) 57.5 % (42.0-75.0); PLATELET COUNT 186 X10^3/uL (150.0-450.0); RED BLOOD COUNT 4.49 X10^6/uL (4.7-6.0); RED CELL DISTRIBUTION WIDTH 12.7 % (11.6-16.5); WHITE BLOOD COUNT 5.7 X10^3/uL (3.6-10.0)
[2017-09-14 06:14] LABS: ALANINE AMINOTRANSFERASE 38 Units/L (12-78); ALBUMIN 3.4 g/dL (3.4-5.0); ALKALINE PHOSPHATASE 50 Units/L (46-116); ASPARTATE AMINO TRANSFERASE 24 Units/L (15-37); BLOOD UREA NITROGEN 7 mg/dL (7-18); CALCIUM 8.6 mg/dL (8.5-10.1); CHLORIDE 103 mmol/L (98-107); CREATININE 0.79 mg/dL (0.70-1.30); SODIUM 139 mmol/L (136-145); TOTAL PROTEIN 7.4 g/dL (6.4-8.2); eGFR BLACK RACES > 60 (>60); eGFR NON BLACK RACES > 60 (>60)
[2017-09-14] MEDS: VANCOMYCIN HCL 500 MG VIAL 500 MG, VANCOMYCIN HCL 1 GM VIAL 1 GM in D5W 250 ML IV 250 ML IV SCH (10:57)
[2017-09-14 19:23] LABS: CREATININE 0.95 mg/dL (0.70-1.30); VANCOMYCIN,TROUGH 14.1 ug/mL (15-20)
[2017-09-14] MEDS ORDERED: D5W IV SCH (21:00)
[2017-09-14] MEDS ORDERED: VANCOMYCIN HCL IV SCH (21:00)
[2017-09-14 22:45] VITALS: BP 144/92
== END 2017-09-14 22:45 | disposition home or self-care (01) | DRG 603 ==
LOC: SURG1 13:08 → MED/SURG 18:41
PROVIDERS: ADMIT Internal Medicine; ATTEND Internal Medicine
PROC: 0LB80ZZ Excision of Left Hand Tendon, Open Approach (ICD-10-PCS; principal; 2017-09-10)
PROC: 0PHV34Z Insertion of Internal Fixation Device into Left Finger Phalanx, Percutaneous Approach (ICD-10-PCS; 2017-09-10)
PROC: 3E0234Z Introduction of Serum, Toxoid and Vaccine into Muscle, Percutaneous Approach (ICD-10-PCS; 2017-09-10)
PROC: 3E0234Z Introduction of Serum, Toxoid and Vaccine into Muscle, Percutaneous Approach (ICD-10-PCS; 2017-09-10)
PROC: 02HV33Z Insertion of Infusion Device into Superior Vena Cava, Percutaneous Approach (ICD-10-PCS; 2017-09-12)
PROC: B548ZZA Ultrasonography of Superior Vena Cava, Guidance (ICD-10-PCS; 2017-09-12)
DX: L03.012 Cellulitis of left finger (principal); L03.114 Cellulitis of left upper limb; M86.142 Other acute osteomyelitis, left hand; B95.62 Methicillin resistant Staphylococcus aureus infection as the cause of diseases classified elsewhere
CPT/HCPCS: 36415; 71045; 76000; 80048; 80053; 80202; 82565; 85025; 87070; 87075; 87077; 87186; 87205; 90686; A4216; A4222; S0020; 90670; J0690; J1170; J2001; J2250; J2405; J3370; J3490; J7120